=== PATIENT | male | born 1955 | race American Indian/Alaskan Native ===

== ENCOUNTER 2019-04-10 08:41 | Emergency (ER) | payer MEDICARE ==
[~2019-04-10] VITALS: Ht 180.3 cm; Wt 83.9 kg
[2019-04-10] MEDS ORDERED: SEROQUEL25 MG PO (09:38)
== END 2019-04-10 09:54 | disposition home or self-care (01) ==
LOC: ER 08:41
DX: K42.9 Umbilical hernia without obstruction or gangrene (principal); F17.210 Nicotine dependence, cigarettes, uncomplicated; Z88.0 Allergy status to penicillin; Z79.899 Other long term (current) drug therapy
CPT/HCPCS: 99283

== ENCOUNTER 2019-04-19 07:55 | Day surgery (SDC) | payer MEDICARE ==
[~2019-04-19] VITALS: Ht 180.3 cm; Wt 89.9 kg
[~2019-04-19 07:55] MED LIST: SEROQUEL25 MG PO
--- NOTE | 2019-04-19 09:26 | NUR ---
Ambulatory in Day Surgery. Surgical site prepped with 2% Chlorhexidine cloth wipe. History, Chart, Medications and Allergies reviewed before start of procedure.Lungs clear T/O to Auscultation. Patient confirms NPO status and agrees with scheduled surgery. Pre-Op teaching done. Pt verbalizes understanding. Patient States Post-Procedure ride home has been arranged. Patient reports completing Chlorhexadine shower X2 prior to admission to hospital.
--- NOTE | 2019-04-19 10:47 | NUR ---
04/19/19 1047 Edwin Santiago ANCEF 2GM IV GIVEN AT [address] GUZMAN
--- NOTE | 2019-04-19 11:51 | NUR ---
RECEIVED REPORT FROM JADA Herring RN. PT AQWAKE AND ORIENTED. PT DRESSING TO MID ABDOMEN CDI. PT DENIES PAIN. OFFERED PO FOOD AND FLUID. VSS. DENIES CONCERNS OR C/O AT THIS TIME.
--- NOTE | 2019-04-19 13:12 | NUR ---
LE 1243 Patient up to Ambulate independently. Gait steady. Discharge instructions reviewed with patient. Patient verbalizes understanding. Copy given to patient to take home. Patient States Post-Procedure ride home has been arranged. Discharged via wheelchair to private car for ride home. ALL BELONINGS SENT WITH PT.
== END 2019-04-19 23:01 | disposition home or self-care (01) ==
LOC: ORSCMMR 07:55 → ORD 09:30 → ORSCMMR 23:01
PROVIDERS: Surgery
PROC: 0WQF0ZZ Repair Abdominal Wall, Open Approach (ICD-10-PCS; principal; 2019-04-19 09:30)
DX: K42.9 Umbilical hernia without obstruction or gangrene (principal); F31.9 Bipolar disorder, unspecified; Z79.899 Other long term (current) drug therapy; Z87.891 Personal history of nicotine dependence
CPT/HCPCS: J0461; J0690; J2250; J2704; J2710; J3010; J7120

== ENCOUNTER → 2021-02-19 | Outpatient (CLI) | payer MEDICARE | END | disposition home or self-care (01) | LOC: LAB SHORT 11:00 → LAB 11:00 | DX: D22.5 Melanocytic nevi of trunk (principal) | CPT/HCPCS: 88305 ==

== ENCOUNTER 2021-06-18 12:38 | Day surgery (SDC) | payer MEDICARE ==
[~2021-06-18] VITALS: Ht 180.3 cm; Wt 100.0 kg
[2021-06-18] MEDS ORDERED: QUET100 (13:09)
== END 2021-06-18 15:23 | disposition home or self-care (01) ==
LOC: ORSCSDS 12:38
PROVIDERS: Student in an Organized Health Care Education/Training Program
PROC: 0DB68ZX Excision of Stomach, Via Natural or Artificial Opening Endoscopic, Diagnostic (ICD-10-PCS; principal; 2021-06-18 14:15)
PROC: 0DB98ZX Excision of Duodenum, Via Natural or Artificial Opening Endoscopic, Diagnostic (ICD-10-PCS; principal; 2021-06-18 14:15)
DX: K74.60 Unspecified cirrhosis of liver (principal); K29.80 Duodenitis without bleeding; K29.70 Gastritis, unspecified, without bleeding; Z86.19 Personal history of other infectious and parasitic diseases; I85.00 Esophageal varices without bleeding; K76.6 Portal hypertension; K31.89 Other diseases of stomach and duodenum; Z79.899 Other long term (current) drug therapy
CPT/HCPCS: 88305; 88342; J0330; J0461; J2250; J2405; J2704; J7120

== ENCOUNTER 2021-07-05 06:48 | Emergency (ER) | payer MEDICARE ==
[~2021-07-05] VITALS: Ht 180.3 cm; Wt 90.7 kg
[~2021-07-05 06:48] MED LIST changes: +QUET100
[2021-07-05] MEDS ORDERED: SEROQUEL100 MG PO (07:34)
[2021-07-05] MEDS ORDERED: PROP10 PO (07:35)
[2021-07-05] MEDS ORDERED: OMEP20ER PO (07:35)
[2021-07-05 07:39] LABS: Source, Urine Clean Catch
[2021-07-05 07:45] LABS: BASOPHILS ABSOLUTE AUTO 0.04 K/mm3 (0.00-0.23); BASOPHILS PERCENT AUTO 0 % (0-2); EOSINOPHILS ABSOLUTE AUTO 0.26 K/mm3 (0.00-0.68); EOSINOPHILS PERCENT AUTO 2 % (0-6); Hematocrit 42.2 % (37.0-53.0); Hemoglobin 14.5 g/dL (13.5-17.5); IMMATURE GRAN ABSOLUTE AUTO 0.25 K/mm3 (0.00-0.10); IMMATURE GRAN PERCENT AUTO 2 % (0-1); LYMPHOCYTES ABSOLUTE AUTO 1.83 K/mm3 (0.84-5.20); LYMPHOCYTES PERCENT AUTO 17 % (21-46); MONOCYTES ABSOLUTE AUTO 1.27 K/mm3 (0.16-1.47); MONOCYTES PERCENT AUTO 12 % (4-13); Mean Corpuscular HGB 33.2 pg (26.0-34.0); Mean Corpuscular HGB Conc 34.4 g/dL (31.5-36.5); Mean Corpuscular Volume 97 fL (80-100); Mean Platelet Volume 10.4 fL (9.1-12.4); NEUTROPHILS ABSOLUTE AUTO 6.99 K/mm3 (1.96-9.15); NEUTROPHILS PERCENT AUTO 66 % (41-73); Platelet Count 119 K/mm3 (150-400); RDW Coefficient Variation 13.6 % (11.7-14.2); RDW Standard Deviation 48.8 fL (35.1-46.3); Red Blood Cell Count 4.37 M/mm3 (4.30-5.90); White Blood Cell Count 10.64 K/mm3 (4.00-11.30)
[2021-07-05 07:52] LABS: Appearance, Urine Clear (Clear); Bilirubin, Urine Neg (Neg); Blood, Urine Neg (Neg); Color, Urine Amber (P-Yellow); Glucose Qualitative, Urine Neg (Neg); Ketones, Urine Neg (Neg); Leukocyte Esterase, Urine Neg (Neg); Nitrite, Urine Neg (Neg); Protein, Urine Neg (Neg); Urobilinogen, Urine NORM (Normal)
[2021-07-05 08:06] LABS: Alanine Aminotransfer (ALT/SGP 113 U/L (12-78); Albumin, Blood 3.2 g/dL (3.4-5.0); Albumin/Globulin Ratio 0.7 (0.8-1.8); Alk Phos 157 U/L (50-136); Anion Gap 9 mmol/L (6-16); Aspartate Aminotrans (AST/SGOT 100 U/L (12-37); Bilirubin, Total 7.4 mg/dL (0.1-1.0); Blood Urea Nitrogen 17 mg/dL (8-24); Bun/Creatinine Ratio 17.6 (12.0-20.0); CO2, Blood 22 mmol/L (21-32); Calcium, Blood 8.6 mg/dL (8.5-10.1); Chloride, Blood 103 mmol/L (98-108); Creatinine, Blood 0.96 mg/dL (0.60-1.20); Globulin, Blood 4.3 g/dL (2.2-4.0); Glomerular Filtration Rate >60 (60-); Glucose, Blood 113 mg/dL (70-99); Potassium, Blood 3.4 mmol/L (3.5-5.5); Sodium, Blood 134 mmol/L (136-145); Total Protein, Blood 7.5 g/dL (6.4-8.2)
[2021-07-05] MEDS ORDERED: LACT10SY PO (14:19)
[2021-07-05] MEDS ORDERED: ONDA4ODT MM (14:20)
== END 2021-07-05 14:33 | disposition home or self-care (01) ==
LOC: ER 06:48
PROVIDERS: Student in an Organized Health Care Education/Training Program
DX: K80.20 Calculus of gallbladder without cholecystitis without obstruction (principal); K74.60 Unspecified cirrhosis of liver; K59.00 Constipation, unspecified; E80.6 Other disorders of bilirubin metabolism; R74.8 Abnormal levels of other serum enzymes; F17.290 Nicotine dependence, other tobacco product, uncomplicated; Z88.0 Allergy status to penicillin; Z79.899 Other long term (current) drug therapy
CPT/HCPCS: 36415; 74177; 76705; 80053; 81003; 83690; 85025; 96374-59; 99284-25; J2270; Q9967

== ENCOUNTER 2023-03-05 19:37 | Emergency (ER) | payer MEDICARE ==
[~2023-03-05] VITALS: Ht 180.3 cm; Wt 86.2 kg
[~2023-03-05 19:37] MED LIST changes: +LACT10SY PO; +OMEP20ER PO; +ONDA4ODT MM; +PROP10 PO; +SEROQUEL100 MG PO
[2023-03-05 20:00] VITALS: BP 125/67
[2023-03-05] MEDS ORDERED: QUET100 PO (20:31)
== END 2023-03-05 20:34 | disposition home or self-care (01) ==
LOC: ER 19:37
DX: F31.9 Bipolar disorder, unspecified (principal); F17.200 Nicotine dependence, unspecified, uncomplicated; Z88.0 Allergy status to penicillin; Z79.899 Other long term (current) drug therapy
CPT/HCPCS: 99284

== ENCOUNTER 2024-12-21 09:20 | Emergency (ER) | payer MEDICARE ==
[~2024-12-21] VITALS: Ht 180.3 cm; Wt 93.0 kg
[~2024-12-21 09:20] MED LIST changes: +QUET100 PO
[2024-12-21] MEDS ORDERED: NEURONTIN300 MG PO (09:56)
[2024-12-21] MEDS ORDERED: HYDHCL25 PO (09:58)
[2024-12-21] MEDS ORDERED: [UNRECOGNIZED DRUG - CODE] PO (09:58)
[2024-12-21] MEDS ORDERED: DOXE10 PO (09:58)
[2024-12-21] MEDS ORDERED: Cyclobenzaprine5 MG PO (10:52)
[2024-12-21] MEDS ORDERED: Prednisone10 MG PO (11:01)
[2024-12-21 11:22] VITALS: BP 132/80
== END 2024-12-21 11:25 | disposition home or self-care (01) ==
LOC: ER 09:20
DX: M54.12 Radiculopathy, cervical region (principal); Z88.0 Allergy status to penicillin; Z79.899 Other long term (current) drug therapy; F17.200 Nicotine dependence, unspecified, uncomplicated
CPT/HCPCS: 99283